=== PATIENT | male | born 1990 | race Two or more races ===

== ENCOUNTER 2020-06-09 09:09 | Emergency (ER) | payer BC, OTHER ==
[~2020-06-09] VITALS: Ht 175.3 cm; Wt 84.2 kg
[2020-06-09 09:15] VITALS: BP 131/87
--- NOTE | 2020-06-09 09:33 | NUR ---
PATIENT COMES IN TODAY C/O OF RLQ AND RIGHT FLANK PAIN THAT STARTED SUDDENLY THIS MORNING AROUND 0730. PAIN RADIATED TO RIGHT LOWER BACK, PATIENT DENIES N/V/D, LAST BM THIS MORNING 06/09/2020. PATIENT ACCOMPANIED BY SIGNIFICANT OTHER, A&OX4, PAIN AT THIS TIME IS 5/10, PATIENT DOESN'T WANT PAIN MEDICINE AT THIS TIME. NO FURTHER NEEDS.
[2020-06-09 10:22] LABS: BASOPHILS # (AUTO) 0.03 x10^3/uL (0-0.1); BASOPHILS % (AUTO) 0 % (0-1); EOSINOPHILS # (AUTO) 0.03 x10^3/uL (0-0.4); EOSINOPHILS % (AUTO) 0 % (1-7); LYMPHOCYTES % (AUTO) 10 % (22-44); MD NO; MEAN CORPUSCULAR HEMOGLOBIN 31.5 pg (27.5-34.5); MEAN CORPUSCULAR VOLUME 92.7 fL (81-97); MONOCYTES # (AUTO) 0.59 x10^3/uL (0.2-0.8); MONOCYTES % (AUTO) 5 % (2-9); NEUTROPHILS # (AUTO) 9.39 x10^3/uL (1.8-6.8); NEUTROPHILS % (AUTO) 84 % (42-75); PLATELET COUNT 251 x10^3/uL (130-400); RED BLOOD COUNT 4.83 x10^6/uL (4.38-5.82); RED CELL DISTRIBUTION WIDTH 12.5 % (9.4-14.8)
[2020-06-09 10:33] LABS: ALANINE AMINOTRANSFERASE 29 U/L (12-78); ALBUMIN 4.1 g/dL (3.4-5.0); ANION GAP 5 mmol/L (5-15); CALCIUM 9.1 mg/dL (8.5-10.1); CHLORIDE 112 mmol/L (98-107); CREATININE 1.47 mg/dL (0.7-1.3)
[2020-06-09 10:36] LABS: ALKALINE PHOSPHATASE 67 U/L (45-117); BILIRUBIN,TOTAL 0.6 mg/dL (0.2-1.0); TOTAL PROTEIN 7.7 g/dL (6.4-8.2)
== END 2020-06-09 11:03 | disposition home or self-care (01) ==
LOC: ED 09:23
DX: R10.11 Right upper quadrant pain (principal); M54.5 Low back pain
CPT/HCPCS: 36415; 76700; 80053; 83690; 85025; 99284